=== PATIENT | female | born 1945 | race Caucasian/White ===

== ENCOUNTER → 2020-11-11 | Outpatient (CLI) | payer OTHER, MEDICARE ==
[~2020-11-11] VITALS: Ht 162.6 cm; Wt 61.2 kg
[~2020-11-11] MED LIST: BIOTIN5 M1 PO; CIMZIA400 MG SQ; ENBREL 25 MG KI25 M1 SC; FAMVIR500 MG PO; GABAPENTIN 100100 MG PO; IBUPROFEN200 M2 PO; MAGNESIUM250 M1 PO; METHOTREXATE 22.5 MG PO; NUCYNTA50 MG PO; ORENCIA 250 MG250 MG IV; POTASSIUM20 PO; SUPER THERAVIT1 EACH PO; VITAMIN D310 MC1 PO
[2020-11-11 09:11] VITALS: BP 133/72
--- NOTE | 2020-11-11 09:26 | NUR ---
Pain Clinic Assessment: 1. History of Osteoarthritis: DENIES History of Rheumatoid Arthritis: FEET AND HANDS 2. Height: 5 ft. 4 in. 162.6 cm. Weight: 135.0 lb. oz. 61.236 kg. Patient's BMI: 23.2 3. Vital Signs: BP: 133/72 Pulse: 69 Resp: 14 Temp: 02 Sat: 100 ECG Mon: 4. Pain Intensity: 5 TO 8 5. Fall Risk: Dizziness: N Needs help standing or walking: N Fallen in the last 3 months: Y Fall risk comments: 6. Patient on Blood Thinner: None 7. History of Hypertension: N 8. Opioid Therapy greater than 6 weeks: N Opiate Contract Signed: 9. Risk Assessment Tool Provided: LOW-0 10. Functional Assessment Tool: 11. Recreational Drug Use: Never Drug Type: Tobacco Use: Never Smoker Tobacco Type: Amount or Packs/day: How Many Years: Alcohol Use: Yes Frequency: Weekly Quant: 1
== END ==
LOC: PAIN 07:06
PROVIDERS: ATTEND Anesthesiology Pain Medicine
DX: M06.9 Rheumatoid arthritis, unspecified (principal)

== ENCOUNTER → 2020-11-18 | Outpatient (CLI) | payer OTHER, MEDICARE ==
[~2020-11-18] VITALS: Ht 162.6 cm; Wt 63.2 kg
[2020-11-18 10:44] VITALS: BP 111/77
--- NOTE | 2020-11-18 10:49 | NUR ---
Pain Clinic Assessment: 1. History of Osteoarthritis: DENIES History of Rheumatoid Arthritis: FEET AND HANDS 2. Height: 5 ft. 4 in. 162.6 cm. Weight: 139.4 lb. oz. 63.231 kg. Patient's BMI: 23.9 3. Vital Signs: BP: 111/77 Pulse: 81 Resp: 16 Temp: 02 Sat: 98 ECG Mon: 4. Pain Intensity: 9 5. Fall Risk: Dizziness: N Needs help standing or walking: N Fallen in the last 3 months: N Fall risk comments: 6. Patient on Blood Thinner: None 7. History of Hypertension: N 8. Opioid Therapy greater than 6 weeks: N Opiate Contract Signed: 9. Risk Assessment Tool Provided: LOW-0 10. Functional Assessment Tool: 11. Recreational Drug Use: Never Drug Type: Tobacco Use: Never Smoker Tobacco Type: Amount or Packs/day: How Many Years: Alcohol Use: Yes Frequency: Quant:
== END | disposition home or self-care (01) ==
LOC: PAIN 06:58
PROVIDERS: ATTEND Anesthesiology Pain Medicine
DX: M19.072 Primary osteoarthritis, left ankle and foot (principal); M25.572 Pain in left ankle and joints of left foot; M77.52 Other enthesopathy of left foot and ankle; M06.9 Rheumatoid arthritis, unspecified; Z98.890 Other specified postprocedural states; Z79.899 Other long term (current) drug therapy; Z88.8 Allergy status to other drugs, medicaments and biological substances

== ENCOUNTER → 2021-02-17 | Outpatient (CLI) | payer OTHER, MEDICARE ==
[~2021-02-17] VITALS: Ht 162.6 cm; Wt 63.2 kg
[~2021-02-17] MED LIST changes: +ACTEMRA162 MG/0.9; +FLEXERIL PO; +MELOXICAM7.5 MG PO; +TRAMADOL 50 MG50 MG PO
[2021-02-17 10:21] VITALS: BP 122/64
--- NOTE | 2021-02-17 10:51 | NUR ---
Pain Clinic Assessment: 1. History of Osteoarthritis: DENIES History of Rheumatoid Arthritis: FEET AND HANDS 2. Height: 5 ft. 4 in. 162.6 cm. Weight: 139.4 lb. oz. 63.231 kg. Patient's BMI: 23.9 3. Vital Signs: BP: 122/64 Pulse: 72 Resp: 14 Temp: 02 Sat: 99 ECG Mon: 4. Pain Intensity: 10+ 5. Fall Risk: Dizziness: Y Needs help standing or walking: N Fallen in the last 3 months: N Fall risk comments: 6. Patient on Blood Thinner: None 7. History of Hypertension: N 8. Opioid Therapy greater than 6 weeks: N Opiate Contract Signed: 9. Risk Assessment Tool Provided: LOW-0 10. Functional Assessment Tool: 11. Recreational Drug Use: Never Drug Type: Tobacco Use: Never Smoker Tobacco Type: Amount or Packs/day: How Many Years: Alcohol Use: Yes Frequency: Quant:
== END | disposition home or self-care (01) ==
LOC: PAIN 07:06
PROVIDERS: ATTEND Anesthesiology Pain Medicine
DX: M25.512 Pain in left shoulder (principal); M12.812 Other specific arthropathies, not elsewhere classified, left shoulder; M53.3 Sacrococcygeal disorders, not elsewhere classified; M06.9 Rheumatoid arthritis, unspecified; Z98.890 Other specified postprocedural states; Z79.899 Other long term (current) drug therapy; Z88.8 Allergy status to other drugs, medicaments and biological substances

== ENCOUNTER → 2021-04-10 | Outpatient (CLI) | payer OTHER, MEDICARE ==
[~2021-04-10] VITALS: Ht 162.6 cm; Wt 63.1 kg
[~2021-04-10] MED LIST changes: +GABAPENTIN100 MG PO; +MIRTAZAPINE7.5 MG PO
[2021-04-10 14:11] VITALS: BP 115/70
--- NOTE | 2021-04-10 14:59 | NUR ---
Pain Clinic Assessment: 1. History of Osteoarthritis: DENIES History of Rheumatoid Arthritis: FEET AND HANDS 2. Height: 5 ft. 4 in. 162.6 cm. Weight: 139.2 lb. oz. 63.141 kg. Patient's BMI: 23.9 3. Vital Signs: BP: 115/70 Pulse: 68 Resp: 16 Temp: 02 Sat: 100 ECG Mon: 4. Pain Intensity: 10 5. Fall Risk: Dizziness: N Needs help standing or walking: N Fallen in the last 3 months: N Fall risk comments: 6. Patient on Blood Thinner: None 7. History of Hypertension: N 8. Opioid Therapy greater than 6 weeks: N Opiate Contract Signed: 9. Risk Assessment Tool Provided: LOW-0 10. Functional Assessment Tool: 11. Recreational Drug Use: Never Drug Type: Tobacco Use: Never Smoker Tobacco Type: Amount or Packs/day: How Many Years: Alcohol Use: Yes Frequency: Weekly Quant: 1-2 GLASS OF WINE
== END ==
LOC: PAIN 13:06
PROVIDERS: ATTEND Anesthesiology Pain Medicine
DX: G62.9 Polyneuropathy, unspecified (principal); M06.9 Rheumatoid arthritis, unspecified; G47.00 Insomnia, unspecified; G89.29 Other chronic pain; Z88.5 Allergy status to narcotic agent; Z88.8 Allergy status to other drugs, medicaments and biological substances; Z79.899 Other long term (current) drug therapy

== ENCOUNTER → 2021-04-24 | Outpatient (CLI) | payer OTHER, MEDICARE ==
[~2021-04-24] VITALS: Ht 162.6 cm; Wt 63.5 kg
[2021-04-24 10:34] VITALS: BP 130/77
--- NOTE | 2021-04-24 10:42 | NUR ---
Pain Clinic Assessment: 1. History of Osteoarthritis: DENIES History of Rheumatoid Arthritis: FEET AND HANDS 2. Height: 5 ft. 4 in. 162.6 cm. Weight: 140.0 lb. oz. 63.504 kg. Patient's BMI: 24.0 3. Vital Signs: BP: 130/77 Pulse: 71 Resp: 16 Temp: 02 Sat: 98 ECG Mon: 4. Pain Intensity: 9 5. Fall Risk: Dizziness: N Needs help standing or walking: N Fallen in the last 3 months: N Fall risk comments: 6. Patient on Blood Thinner: None 7. History of Hypertension: N 8. Opioid Therapy greater than 6 weeks: N Opiate Contract Signed: 9. Risk Assessment Tool Provided: LOW-0 10. Functional Assessment Tool: 11. Recreational Drug Use: Never Drug Type: Tobacco Use: Never Smoker Tobacco Type: Amount or Packs/day: How Many Years: Alcohol Use: No Frequency: Quant:
== END | disposition home or self-care (01) ==
LOC: PAIN 09:12
PROVIDERS: ATTEND Anesthesiology Pain Medicine
DX: M25.572 Pain in left ankle and joints of left foot (principal); G89.29 Other chronic pain; M06.9 Rheumatoid arthritis, unspecified; G62.9 Polyneuropathy, unspecified; G47.00 Insomnia, unspecified; Z98.890 Other specified postprocedural states; Z79.899 Other long term (current) drug therapy

== ENCOUNTER → 2021-06-09 | Outpatient (CLI) | payer OTHER, MEDICARE ==
[~2021-06-09] VITALS: Ht 162.6 cm; Wt 62.6 kg
[~2021-06-09] MED LIST changes: +NEURONTIN 300M300 M2 PO; +[UNRECOGNIZED DRUG - OTHER] INJECTION
[2021-06-09 10:02] VITALS: BP 123/78
--- NOTE | 2021-06-09 10:10 | NUR ---
Pain Clinic Assessment: 1. History of Osteoarthritis: Not Applicable History of Rheumatoid Arthritis: FEET HANDS 2. Height: 5 ft. 4 in. 162.6 cm. Weight: 138.0 lb. oz. 62.596 kg. Patient's BMI: 23.7 3. Vital Signs: BP: 123/78 Pulse: 57 Resp: 16 Temp: 02 Sat: 97 ECG Mon: 4. Pain Intensity: 5 5. Fall Risk: Dizziness: Needs help standing or walking: Fallen in the last 3 months: Fall risk comments: 6. Patient on Blood Thinner: None 7. History of Hypertension: N 8. Opioid Therapy greater than 6 weeks: Y Opiate Contract Signed: 9. Risk Assessment Tool Provided: LOW-0 10. Functional Assessment Tool: 11. Recreational Drug Use: Never Drug Type: Tobacco Use: Never Smoker Tobacco Type: Amount or Packs/day: How Many Years: Alcohol Use: Yes Frequency: Weekly Quant: 3
== END ==
LOC: PAIN 06:57
PROVIDERS: ATTEND Anesthesiology Pain Medicine
DX: G89.29 Other chronic pain (principal); M06.9 Rheumatoid arthritis, unspecified; G62.9 Polyneuropathy, unspecified; G47.09 Other insomnia; Z79.899 Other long term (current) drug therapy; Z88.8 Allergy status to other drugs, medicaments and biological substances